=== PATIENT | male | born 1970 | race Caucasian/White ===

== ENCOUNTER → 2016-12-31 | Outpatient (CLI) | payer OTHER ==
[~2016-12-31] VITALS: Ht 170.2 cm; Wt 93.2 kg
[~2016-12-31] MED LIST: CELE100C PO; FLUTISP; LIDOCAINE 2% INJ 100 MG/5 ML SDV (FOR ANES.) As Ordered ONE; LORATAB PO; MONT10TA2 PO; NAPR500T2 PO; NS 1,000 ML IV SCH; OMEP40CA2 PO; PROA1AER INH; PROPOFOL 200 MG/20 ML VIAL As Ordered ONE
--- NOTE | 2016-12-31 15:35 | ROOR ---
Patient Name: Ricki Shelby Procedure Date: 12/31/2016 3:18 PM Date of : 1970 Age: 46 Room: [facility] Gender: Male Note Status: Finalized Procedure: Colonoscopy Indications: Change in bowel habits, Diarrhea Providers: Wilberto MARROQUIN MD Referring MD: YAO SAMAYOA MD Requesting Provider: Medicines: Monitored Anesthesia Care Complications: No immediate complications. Procedure: Pre-Anesthesia Assessment: - The heart rate, respiratory rate, oxygen saturations, blood pressure, adequacy of pulmonary ventilation, and response to care were monitored throughout the procedure. The Colonoscope was introduced through the anus and advanced to 5 cm into the ileum. The colonoscopy was performed without difficulty. The patient tolerated the procedure well. The quality of the bowel preparation was good. Findings: The perianal and digital rectal examinations were normal. (Exam: Complete, Prep: Good or Excellent.) The terminal ileum appeared normal. The entire examined colon appeared normal on direct and retroflexion views. Small Internal Hemorrhoids. Impression: - The terminal ileum is normal. - The entire colon is normal on direct and retroflexion views. - Small Internal Hemorrhoids. - No specimens collected. Recommendation: - Use fiber, for example Citrucel, Fibercon, Konsyl or Metamucil. Wilberto Marroquin MD Wilberto MARROQUIN MD 12/31/2016 3:35:44 PM This report has been signed electronically. Number of Addenda: 0 Note Initiated On: 12/31/2016 3:18 PM Estimated Blood Loss: Estimated blood loss: none.
[2016-12-31 16:33] VITALS: BP 111/64
== END | disposition home or self-care (01) ==
LOC: M OPP 13:39
PROVIDERS: ATTEND Internal Medicine Gastroenterology
DX: R19.4 Change in bowel habit (principal); K64.8 Other hemorrhoids; R19.7 Diarrhea, unspecified; R12 Heartburn; K21.9 Gastro-esophageal reflux disease without esophagitis; M54.9 Dorsalgia, unspecified; G47.30 Sleep apnea, unspecified; R06.83 Snoring; J45.909 Unspecified asthma, uncomplicated; Z88.0 Allergy status to penicillin; Z79.899 Other long term (current) drug therapy

== ENCOUNTER 2019-05-07 10:22 | Emergency (ER) | payer OTHER ==
[~2019-05-07] VITALS: Ht 170.2 cm; Wt 94.5 kg
[~2019-05-07 10:22] MED LIST changes: -LIDOCAINE 2% INJ 100 MG/5 ML SDV (FOR ANES.) As Ordered ONE; +NAPR-885 PO; -NAPR500T2 PO; -NS 1,000 ML IV SCH; -PROA1AER INH; +PROAAER10 INH; -PROPOFOL 200 MG/20 ML VIAL As Ordered ONE
[2019-05-07] MEDS ORDERED: LISI-542 (10:31)
[2019-05-07] MEDS ORDERED: IBUPROFEN 800 MG TAB PO ONE (11:30)
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
[2019-05-07] MEDS ORDERED: LISINOPRIL 5 MG TAB PO STA (12:45)
[2019-05-07] MEDS ORDERED: IBUP-1022 PO (13:04)
[2019-05-07] MEDS ORDERED: ROBA500T PO (13:04)
[2019-05-07 13:13] VITALS: BP 155/102
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
== END 2019-05-07 13:15 | disposition home or self-care (01) ==
LOC: M ED 10:22
DX: S13.4XXA Sprain of ligaments of cervical spine, initial encounter (principal); R51 Headache; M25.78 Osteophyte, vertebrae; M54.9 Dorsalgia, unspecified; M50.30 Other cervical disc degeneration, unspecified cervical region; M51.36 Other intervertebral disc degeneration, lumbar region; M51.37 Other intervertebral disc degeneration, lumbosacral region; M51.34 Other intervertebral disc degeneration, thoracic region; V49.40XA Driver injured in collision with unspecified motor vehicles in traffic accident, initial encounter; Y92.410 Unspecified street and highway as the place of occurrence of the external cause; Y93.84 Activity, sleeping; G47.33 Obstructive sleep apnea (adult) (pediatric); I10 Essential (primary) hypertension; Q76.0 Spina bifida occulta; Z79.51 Long term (current) use of inhaled steroids; Z79.899 Other long term (current) drug therapy; Z88.0 Allergy status to penicillin

== ENCOUNTER 2019-12-07 21:39 | Emergency (ER) | payer OTHER ==
[~2019-12-07] VITALS: Ht 170.2 cm; Wt 104.0 kg
[~2019-12-07 21:39] MED LIST changes: +IBUP-1022 PO; +LISI-542; -MONT10TA2 PO; +MONT10TA4 PO; -OMEP40CA2 PO; +OMEP40CA97 PO; +ROBA500T PO
[2019-12-07] MEDS ORDERED: LISI10TA4 (21:51)
[2019-12-07 22:38] LABS: BASO # 0.1 10^3/uL (0.0-0.2); BASO % 0.5 % (0.0-1.0); EOS # 0.5 10^3/uL (0.0-0.5); HEMATOCRIT 44.9 % (42.0-52.0); HEMOGLOBIN 15.1 g/dl (13.5-17.5); LYMPH # 3.4 10^3/uL (1.5-5.0); LYMPH % 32.3 % (24.0-44.0); MEAN CORPUSCULAR HEMOGLOBIN 30.6 pg (27.0-33.0); MEAN CORPUSCULAR HGB CONC 33.6 g/dl (32.0-36.5); MEAN CORPUSCULAR VOLUME 90.9 fl (80.0-96.0); MONO # 0.8 10^3/uL (0.0-0.8); MONO % 7.7 % (0.0-5.0); NEUTROPHILS # 5.7 10^3/uL (1.5-8.5); NEUTROPHILS % 53.9 % (36.0-66.0); PLATELET COUNT, AUTOMATED 181 10^3/uL (150-450); RED BLOOD COUNT 4.94 10^6/uL (4.30-6.10); WHITE BLOOD COUNT 10.6 10^3/uL (4.0-10.0)
[2019-12-07 22:40] LABS: APPEARANCE, URINE CLEAR (CLEAR); BILIRUBIN, URINE AUTO NEGATIVE (NEGATIVE); BLOOD, URINE BLOOD 1+ (NEGATIVE); COLOR, URINE YELLOW (YELLOW); GLUCOSE, URINE (UA) AUTO NEGATIVE (NEGATIVE); KETONE, URINE AUTO NEGATIVE (NEGATIVE); LEUKOCYTE ESTERASE, URINE AUTO NEGATIVE (NEGATIVE); NITRITE, URINE AUTO NEGATIVE (NEGATIVE); PROTEIN, URINE AUTO NEGATIVE (NEGATIVE); SPECIFIC GRAVITY URINE AUTO 1.016 (1.002-1.035); UROBILINOGEN, URINE AUTO 0.2 mg/dL (0.0-2.0)
[2019-12-07 22:42] LABS: BACTERIA, URINE AUTO NEGATIVE (NEGATIVE); MUCUS, URINE SMALL (NEGATIVE); RBC, URINE AUTO 2 /HPF (0-3); SQUAMOUS EPITHELIAL CELL UR AU 0 /HPF (0-6); WBC, URINE AUTO 0 /HPF (0-3)
[2019-12-07 22:49] LABS: INR 1.01
[2019-12-07 23:27] LABS: ALBUMIN 4.2 GM/DL (3.2-5.2); ALT/SGPT 33 U/L (12-78); BILIRUBIN,DIRECT < 0.1 MG/DL (0.0-0.2); BILIRUBIN,TOTAL 0.5 MG/DL (0.2-1.0); CK-MB VALUE MASS 2.2 NG/ML (<3.6); CPK CREATINE PHOSPHOKINASE 254 U/L (39-308); LIPASE 188 U/L (73-393); MB/CK RELATIVE INDEX 0.87 (< OR =4); NT-PRO BNP 14 PG/ML (<125); TOTAL PROTEIN 7.4 GM/DL (6.4-8.2); TROPONIN I < 0.02 NG/ML (< 0.10)
[2019-12-08 02:13] LABS: CK-MB VALUE MASS 1.8 NG/ML (<3.6); CPK CREATINE PHOSPHOKINASE 226 U/L (39-308); TROPONIN I < 0.02 NG/ML (< 0.10)
[2019-12-08 02:35] VITALS: BP 151/79
--- NOTE | 2019-12-08 07:57 | ECGEPIP ---
[facility] - ED Test Date: 2019-12-07 Pat Name: KYLE DOUGHERTY Department: Room: - Gender: Male Toe Puncher: CALLY : 1970 Requested By: LUIS Sweeney PA-C Order Number: [id number] Reading MD: West Coulter Measurements Intervals [place] Rate: 66 P: 70 LA: 176 QRS: 64 QRSD: 84 T: 84 QT: 366 QTc: 384 Interpretive Statements SINUS RHYTHM NONSPECIFIC ST & T-WAVE ABNORMALITY NO PRIORS FOR COMPARISON Electronically Signed on 12-08-2019 7:56:56 EDT by West Coulter
--- NOTE | 2019-12-08 12:29 | REP ---
REASON: Chest pain. PRIORS: None. TWO-VIEW CHEST: FINDINGS: The superior mediastinal structures are midline. The cardiac silhouette is unremarkable in size, shape, and position. The diaphragmatic surfaces of the lungs are regular, and the costophrenic angles are clear. The pulmonary kong are clear. The imaged osseous structures are intact. IMPRESSION: There is no acute cardiopulmonary disease. Unreviewed
== END 2019-12-08 02:36 | disposition home or self-care (01) ==
LOC: M ED 21:39
DX: R07.89 Other chest pain (principal); I10 Essential (primary) hypertension; G47.33 Obstructive sleep apnea (adult) (pediatric); K21.9 Gastro-esophageal reflux disease without esophagitis; F17.290 Nicotine dependence, other tobacco product, uncomplicated; Z88.0 Allergy status to penicillin

== ENCOUNTER → 2023-02-17 | Outpatient (CLI) | payer OTHER ==
[~2023-02-17] MED LIST changes: +FLUT50SP17; -FLUTISP; -LISI-542; +LISI10TA22; +LISI5TAB11; -MONT10TA4 PO; +MONT10TA97 PO; +OMEP40CA4 PO; -OMEP40CA97 PO
== END ==
LOC: M SLEEP 20:00
PROVIDERS: ATTEND Physician Assistant Medical
DX: G47.33 Obstructive sleep apnea (adult) (pediatric) (principal); G47.31 Primary central sleep apnea

== ENCOUNTER 2024-06-26 07:16 | Day surgery (SDC) | payer OTHER ==
[~2024-06-26] VITALS: Ht 170.2 cm; Wt 104.9 kg
[~2024-06-26 07:16] MED LIST changes: +ALBU8.5H INH; -FLUT50SP17; +FLUTISP; -LISI10TA22; +LISI10TA22 PO; +LISI20TA33 PO; +LORA-930 PO; +METH-1164 PO; +NS 1,000 ML IV ONE; +OMEP40CA5 PO; +TAMS1CAP17 PO; +THERTAB52 PO
[2024-06-26 09:25] VITALS: TEMP 97.6
[2024-06-26 09:35] VITALS: BP 139/78; O2SAT 99
== END 2024-06-26 09:44 | disposition home or self-care (01) ==
LOC: M OPP 07:16
PROVIDERS: ATTEND Surgery
DX: Z12.11 Encounter for screening for malignant neoplasm of colon (principal); Z12.12 Encounter for screening for malignant neoplasm of rectum; K21.9 Gastro-esophageal reflux disease without esophagitis; I10 Essential (primary) hypertension; R73.03 Prediabetes; G47.30 Sleep apnea, unspecified; Z79.899 Other long term (current) drug therapy; Z90.89 Acquired absence of other organs; N40.0 Benign prostatic hyperplasia without lower urinary tract symptoms; Z88.0 Allergy status to penicillin; Z91.012 Allergy to eggs; Z91.018 Allergy to other foods; Z72.0 Tobacco use

== ENCOUNTER → 2024-07-25 | Outpatient (CLI) | payer OTHER ==
[~2024-07-25] MED LIST changes: -NS 1,000 ML IV ONE
== END ==
LOC: M SLEEP 20:00
PROVIDERS: ATTEND Physician Assistant Medical
DX: G47.33 Obstructive sleep apnea (adult) (pediatric) (principal)